=== PATIENT | male | born 1945 | race Asian ===

== ENCOUNTER → 2017-10-29 | Outpatient (CLI) | payer MEDICARE | LOC: CVU 07:52 | PROVIDERS: ATTEND Family Medicine | DX: I65.23 Occlusion and stenosis of bilateral carotid arteries (principal); I11.0 Hypertensive heart disease with heart failure; Z87.891 Personal history of nicotine dependence | CPT/HCPCS: 93880 ==

== ENCOUNTER → 2017-12-25 | Outpatient (CLI) | payer MEDICARE | END | disposition home or self-care (01) | LOC: CFH 13:30 | PROVIDERS: ATTEND Family Medicine | DX: I11.0 Hypertensive heart disease with heart failure (principal); I50.9 Heart failure, unspecified; E11.65 Type 2 diabetes mellitus with hyperglycemia; R42 Dizziness and giddiness | CPT/HCPCS: 93306 ==

== ENCOUNTER → 2018-01-10 | Outpatient (CLI) | payer MEDICARE | END | disposition home or self-care (01) | LOC: CFH 14:31 | PROVIDERS: ATTEND Physician Assistant Surgical | DX: N28.1 Cyst of kidney, acquired (principal); N40.0 Benign prostatic hyperplasia without lower urinary tract symptoms; R31.0 Gross hematuria | CPT/HCPCS: 74176; 76770 ==

== ENCOUNTER → 2018-08-06 | Outpatient (CLI) | payer MEDICARE | END | disposition home or self-care (01) | LOC: CFH 11:16 | PROVIDERS: ATTEND Family Medicine | DX: E11.22 Type 2 diabetes mellitus with diabetic chronic kidney disease (principal); I12.9 Hypertensive chronic kidney disease with stage 1 through stage 4 chronic kidney disease, or unspecified chronic kidney disease; N18.3 Chronic kidney disease, stage 3 (moderate); N28.1 Cyst of kidney, acquired; N40.1 Benign prostatic hyperplasia with lower urinary tract symptoms | CPT/HCPCS: 76770 ==

== ENCOUNTER 2018-08-09 08:03 | Emergency (ER) | payer MEDICARE ==
[~2018-08-09] VITALS: Ht 172.7 cm; Wt 94.0 kg
--- NOTE | 2018-08-09 08:26 | NUR ---
PT BIB [facility] FOR PT WAKING UP WITH DIZZINESS, THE ROOM SPINNING, AND VOMITED 3 TO 4 TIMES. DENIES COLD SYMPTOMS. BP 186/75, HR 82 NS. FS 168. -STROKE SCALE. PT IS ALERT, ORIENTED, WITH NAD. PT WAS GIVEN 4MG ZOFRAN BY EMS. PT IS CONNECTED TO MONITOR. CALL LIGHT WITHIN REACH.
[2018-08-09] MEDS ORDERED: SODIUM CHLORIDE FLUSH 10ML SYR IVF ONE (08:30)
[2018-08-09] MEDS ORDERED: MECLIZINE CHEWABLE 25 MG TAB PO ONE ×2 (08:30→12:30)
[2018-08-09] MEDS ORDERED: DULA0.75 SQ (08:36)
[2018-08-09] MEDS ORDERED: ASPI-496 PO (08:36)
[2018-08-09] MEDS ORDERED: FEBU40TA PO (08:36)
[2018-08-09] MEDS ORDERED: FINA5TAB4 PO (08:36)
[2018-08-09] MEDS ORDERED: INSU100V8 SQ (08:36)
[2018-08-09] MEDS ORDERED: CHLO25TA PO (08:36)
[2018-08-09] MEDS ORDERED: DOXA2TAB9 PO (08:36)
[2018-08-09] MEDS ORDERED: METO200T47 PO (08:36)
[2018-08-09] MEDS ORDERED: VALS160T27 PO (08:36)
[2018-08-09] MEDS ORDERED: MECLIZINE CHEWABLE 25 MG TAB ONE ×2 (08:40→12:04)
--- NOTE | 2018-08-09 08:42 | NUR ---
PT MEDICATED PER ORDER. PT IS AWARE OF THE NEED FOR A URINE SAMPLE. PT DOES NOT HAVE TO GO AT THIS TIME.
--- NOTE | 2018-08-09 08:53 | NUR ---
TECH AT BEDSIDE FOR EKG.
[2018-08-09 08:56] LABS: BASOPHILS # (AUTO) 0.04 x10^3/uL (0-0.1); BASOPHILS % (AUTO) 1 % (0-1); EOSINOPHILS # (AUTO) 0.07 x10^3/uL (0-0.4); EOSINOPHILS % (AUTO) 1 % (1-7); LYMPHOCYTES # (AUTO) 0.75 x10^3/uL (1-3.4); LYMPHOCYTES % (AUTO) 11 % (22-44); MD NO; MEAN CORPUSCULAR HEMOGLOBIN 30.4 pg (27.5-34.5); MEAN CORPUSCULAR HGB CONC 34.2 g/dL (33.2-36.2); MEAN PLATELET VOLUME 8.7 fL (7.4-10.4); MONOCYTES % (AUTO) 3 % (2-9); NEUTROPHILS # (AUTO) 5.59 x10^3/uL (1.8-6.8); NEUTROPHILS % (AUTO) 84 % (42-75); PLATELET COUNT 173 x10^3/uL (130-400); RED BLOOD COUNT 5.19 x10^6/uL (4.38-5.82)
[2018-08-09 09:07] LABS: ALANINE AMINOTRANSFERASE 30 U/L (12-78); ALBUMIN 3.9 g/dL (3.4-5.0); ANION GAP 7 mmol/L (5-15); CALCIUM 8.6 mg/dL (8.5-10.1); CHLORIDE 109 mmol/L (98-107); CREATININE 2.13 mg/dL (0.7-1.3)
[2018-08-09 09:12] LABS: ALKALINE PHOSPHATASE 73 U/L (45-117); BILIRUBIN,TOTAL 0.8 mg/dL (0.2-1.0); TOTAL PROTEIN 7.1 g/dL (6.4-8.2); TROPONIN I < 0.015 ng/mL (0.000-0.045)
--- NOTE | 2018-08-09 09:23 | NUR ---
Pt is resting in bed watching TV, respirations equal and non labored. NAD. Pt is connected to the monitor. Call light within reach. Spouse at bedside.
--- NOTE | 2018-08-09 10:06 | NUR ---
Reminded pt of the need for a urine sample. Pt stated that he does not have to go at this time.
--- NOTE | 2018-08-09 10:29 | NUR ---
Pt provided a urine sample. Sample sent to the lab.
[2018-08-09 10:35] LABS: MICROSCOPIC NOT IND
[2018-08-09 10:38] LABS: CULTURE INDICATED? NO
--- NOTE | 2018-08-09 11:26 | NUR ---
Pt taken to MRI.
--- NOTE | 2018-08-09 11:57 | NUR ---
Pt is back from MRI. Pt is alert, oriented, with NAD. Pt is connected to the monitor. Call light within reach. at bedside.
--- NOTE | 2018-08-09 12:05 | NUR ---
Per pt can have another 25 mg of PO Meclizine.
--- NOTE | 2018-08-09 13:00 | NUR ---
Pt is resting in bed watching TV, respirations equal and non labored. NAD. Pt is connected to the monitor. Call light within reach. Spouse at bedside.
[2018-08-09 13:42] VITALS: BP 151/79
--- NOTE | 2018-08-09 13:57 | NUR ---
Patient given discharge instructions and they have confirmed that they understand the instructions. Patient left ED in wheelchair.
== END 2018-08-09 13:58 | disposition home or self-care (01) ==
LOC: ED 09:18
DX: R42 Dizziness and giddiness (principal); Z88.8 Allergy status to other drugs, medicaments and biological substances; Z87.891 Personal history of nicotine dependence
CPT/HCPCS: 36415; 70551; 80053; 81003; 84484; 85025; 93005; 99284

== ENCOUNTER 2020-10-24 15:36 | Emergency (ER) | payer MEDICARE ==
[~2020-10-24] VITALS: Ht 172.7 cm; Wt 82.0 kg
[~2020-10-24 15:36] MED LIST: ASPI-496 PO; CHLO25TA PO; CHOL200040 PO; DOXA2TAB9 PO; DOXA4TAB3 PO; DULA0.75 SQ; FEBU40TA PO; FINA5TAB4 PO; GABA300C10 PO; INSU100V8 SQ; INSU200I4 SQ; MECL-85 PO; METO200T47 PO; SIMV20TA PO; VALS160T27 PO
--- NOTE | 2020-10-24 15:45 | NUR ---
RADHA FALLON FROM HOME FOR BILAT KNEE AND LEFT ANKLE PAIN. PROBABLE GOUT FLAREUP. PT STATES HE HIS ALLOPURINOL WAS CHANGED TO ULORIC IN AUGUST 2019. PT STATES GOUT PAIN HAS INCREASED AFTER MED CHANGE. PT STATES ALLOPURINOL WAS EFFECTIVE PRIOR TO CHANGE. PT CONNECTED TO MONITORING. CALL LIGHT IN REACH. WARM BLANKET PROVIDED.
[2020-10-24] MEDS ORDERED: SODIUM CHLORIDE 0.9% 1,000 ML IV ONE (16:30)
[2020-10-24] MEDS ORDERED: SODIUM CHLORIDE FLUSH 10ML SYR IVF ONE (16:30)
--- NOTE | 2020-10-24 16:40 | NUR ---
PT AT XRAY
[2020-10-24] MEDS ORDERED: MORPHINE SULFATE 4 MG/ML, 1ML ONE ×2 (16:46→18:17)
[2020-10-24 17:00] LABS: BASOPHILS % (AUTO) 0 % (0-1); EOSINOPHILS % (AUTO) 0 % (1-7); LYMPHOCYTES % (AUTO) 3 % (22-44); MEAN CORPUSCULAR HEMOGLOBIN 30.5 pg (27.5-34.5); MEAN PLATELET VOLUME 9.5 fL (7.4-10.4); MONOCYTES % (AUTO) 5 % (2-9); NEUTROPHILS % (AUTO) 91 % (42-75); PLATELET COUNT 198 x10^3/uL (130-400); RED CELL DISTRIBUTION WIDTH 13.4 % (9.4-14.8)
[2020-10-24 17:01] LABS: ALANINE AMINOTRANSFERASE 19 U/L (12-78); ANION GAP 7 mmol/L (5-15); CALCIUM 8.9 mg/dL (8.5-10.1); CHLORIDE 107 mmol/L (98-107); CREATININE 2.82 mg/dL (0.7-1.3)
[2020-10-24 17:03] LABS: ALKALINE PHOSPHATASE 136 U/L (45-117); BILIRUBIN,TOTAL 1.8 mg/dL (0.2-1.0); TOTAL PROTEIN 7.3 g/dL (6.4-8.2)
[2020-10-24] MEDS: MORPHINE SULFATE 4 MG/ML, 1ML IVPush PRN ×2 (17:09→18:20)
--- NOTE | 2020-10-24 17:10 | NUR ---
PT BACK FROM XRAY. PIV PLACED. GEOLOGY ASSOCIATE PER AUG, PT PLACED ON OXYGEN FOR SAFETY. IVF RUNNING. PT CONNECTED TO MONITORING. PT POSITIONED FOR COMFORT. CALL LIGHT IN REACH.
[2020-10-24 17:11] VITALS: BP 148/85
[2020-10-24 17:16] LABS: MD SCAN
--- NOTE | 2020-10-24 17:16 | NUR ---
MED REQUESTED FROM PHARMACY.
[2020-10-24] MEDS ORDERED: LIDOCAINE-MPF 1%, 5ML ONE (17:20)
[2020-10-24] MEDS ORDERED: TRIAMCINOLONE ACETONIDE 40 MG/ML, 1ML IM ONE (17:30)
[2020-10-24] MEDS ORDERED: LIDOCAINE 1%, 10ML INFIL ONE (17:30)
--- NOTE | 2020-10-24 17:48 | NUR ---
ERMD AT BEDSIDE FOR ARTHROCENTISIS.
[2020-10-24] MEDS ORDERED: HYDROcodone/APAP 5/325 TABLET ONE (18:26)
[2020-10-24] MEDS ORDERED: HYDROcodone/APAP 5/325 TABLET PO ONE (18:30)
--- NOTE | 2020-10-24 18:50 | NUR ---
TASK RN: PIV REMOVED, PT TRANSFERED SELF TO WHEELCHAIR W/ ASSISTANCE FROM FAMILY. RESP EVEN AND UNLABORED, NADN. PT VERBALIZED UNDERSTANDING OF DC INSTRUCTIONS. PROVIDED W/ TAXI VOUCHER PER PT REQUEST.
== END 2020-10-24 18:53 | disposition home or self-care (01) ==
LOC: ED 17:42
DX: M17.0 Bilateral primary osteoarthritis of knee (principal); M10.062 Idiopathic gout, left knee; M10.061 Idiopathic gout, right knee; I11.0 Hypertensive heart disease with heart failure; I50.9 Heart failure, unspecified; E78.5 Hyperlipidemia, unspecified; E11.9 Type 2 diabetes mellitus without complications; Z87.891 Personal history of nicotine dependence
CPT/HCPCS: 20611; 36415; 73564; 80053; 84550; 85025; 85651; 96361; 96374; 96376; 99284; J2270; J7030